=== PATIENT | male | born 1950 | race Caucasian/White ===

== ENCOUNTER 2016-10-03 13:38 | Outpatient (CLI) | payer OTHER ==
[2014-09-19 03:04] VITALS: BP 127/80
== END 2016-10-03 14:01 ==
LOC: CARD 13:38
PROVIDERS: ATTEND Internal Medicine Cardiovascular Disease
DX: I25.10 Atherosclerotic heart disease of native coronary artery without angina pectoris (principal); E78.5 Hyperlipidemia, unspecified; E11.9 Type 2 diabetes mellitus without complications
CPT/HCPCS: 99213

== ENCOUNTER 2016-11-06 08:34 | Day surgery (SDC) | payer OTHER ==
[2014-09-19 03:04] VITALS: BP 127/80
[~2016-11-06 08:34] MED LIST: LACTATED RINGERS 1,000 ML IV.SOLN IV ONE; PROPOFOL 500 MG/50 ML VIAL IV ONE; SALINE FLUSH 10 ML DISP.SYRIN IVF ONE
--- NOTE | 2016-11-07 14:57 | GI Report ---
REFERRING PHYSICIAN: Dr. Henry Ryder [employer]ANCE BILLER: Heriberto Diaz MD PROCEDURE MEDICATION: Propofol as per anesthesia. INDICATIONS: This 66-year-old man is referred for a screening colonoscopy. He does have heart stents. He has been off Plavix for 5 days. He is a diabetic. He has metabolic syndrome with central obesity, hypertension, and a lipid disorder. He is 5 feet 11 inches and weighs 100 kilograms and carries that centrally. He has some tendency towards constipation. He denies a family history of colorectal cancer. PROCEDURE PERFORMED: Colonoscopy. PROCEDURE: An Olympus video colonoscope was advanced through the rectum. The prep was fair but we did lavage and suction and we were able to finally get to the cecum. A very atonic redundant colon. The appendiceal orifice and terminal ileum were normal. On slow withdrawal, the cecum, ascending colon, and transverse had no obvious intraluminal lesions noted, though it was not a perfect prep. Descending colon and sigmoid, again, a very redundant colon. It was not a good prep. No obvious intraluminal lesions noted, though small polyps could be missed. Retroflexion of the rectum was normal. Patient tolerated the procedure well. FINDINGS: 1. Atonic redundant colon. 2. No obvious intraluminal lesions noted as best as we could see with lavage and suction, though the prep was not ideal. RECOMMENDATIONS: 1. He can restart his Plavix, since we did not remove anything today. 2. Go back on his diabetic diet. 3. Again, from a colon standpoint, more fiber, fruits, vegetables, etc. are beneficial. White carbohydrates, which are sugar, are not beneficial for the colon. 4. Consider re-looking at his colon in 5 to 10 years. cc: Dr. Henry TURK
== END 2016-11-06 08:35 ==
LOC: OPSURG 08:34
PROVIDERS: ATTEND Internal Medicine Gastroenterology
DX: Z12.11 Encounter for screening for malignant neoplasm of colon (principal); K59.8 Other specified functional intestinal disorders; E11.9 Type 2 diabetes mellitus without complications; E88.81 Metabolic syndrome and other insulin resistance; E66.8 Other obesity; I10 Essential (primary) hypertension; K59.00 Constipation, unspecified
CPT/HCPCS: J2704; J7120; 45378; S1016

== ENCOUNTER 2017-12-11 08:42 | Outpatient (CLI) | payer MEDICARE, OTHER ==
[2014-09-19 03:04] VITALS: BP 127/80
== END 2017-12-11 10:24 ==
LOC: LAB 08:42
PROVIDERS: ATTEND Family Medicine
DX: E11.9 Type 2 diabetes mellitus without complications (principal); E78.5 Hyperlipidemia, unspecified
CPT/HCPCS: 36415; 80061; 83036